=== PATIENT | male | born 1995 | race Caucasian/White ===

== ENCOUNTER 2016-09-27 03:14 | Emergency (ER) | payer OTHER ==
[~2016-09-27] VITALS: Ht 188 cm; Wt 95.2 kg
[2016-09-27 05:58] VITALS: BP 122/74
== END 2016-09-27 05:58 | disposition home or self-care (01) ==
LOC: ED 03:14
DX: S46.911A Strain of unspecified muscle, fascia and tendon at shoulder and upper arm level, right arm, initial encounter (principal); V43.52XA Car driver injured in collision with other type car in traffic accident, initial encounter; Y93.89 Activity, other specified; Y99.8 Other external cause status; Y92.89 Other specified places as the place of occurrence of the external cause
CPT/HCPCS: J1885; Q0092

== ENCOUNTER 2018-02-27 17:04 | Emergency (ER) | payer BC ==
[~2018-02-27] VITALS: Ht 188 cm; Wt 77.6 kg
[2018-02-27 17:37] VITALS: Ht 188 cm; Wt 77.6 kg
[2018-02-27 18:22] LABS: BASOPHIL % 0.9 % (0-2); PLATELET COUNT 287 x10^3mcL (130-400); RED CELL DISTRIBUTION WIDTH 12.3 % (11.5-14.5)
[2018-02-27 18:33] LABS: CALCIUM 9.3 mg/dL (8.5-10.1); CARBON DIOXIDE 31.6 mmol/L (21-32); CHLORIDE SERUM 101 mmol/L (98-107); CREATININE SERUM 0.8 mg/dL (0.7-1.3); GFR1 > 60 mL/min; GLUCOSE SERUM 109 mg/dL (74-106); POTASSIUM SERUM 3.5 mmol/L (3.5-5.1); SODIUM SERUM 140 mmol/L (136-145)
[2018-02-27 18:37] LABS: ALBUMIN 4.3 g/dL (3.4-5.0); ALKALINE PHOSPHATASE 84 U/L (46-116); ALT/SGPT 54 U/L (16-63); AST/SGOT 42 U/L (15-37); BILIRUBIN TOTAL 0.52 mg/dL (0.20-1.00); HDL CHOLESTEROL 48 mg/dL (40-60); PHOSPHOROUS 3.2 mg/dL (2.5-4.9); TOTAL PROTEIN, SERUM 7.6 g/dL (6.4-8.2); URIC ACID 5.6 mg/dL (3.5-7.2)
[2018-02-27 18:38] LABS: CHOLESTEROL 111 mg/dL (<200)
[2018-02-27 21:57] VITALS: BP 135/87
== END 2018-02-27 21:57 | disposition home or self-care (01) ==
LOC: ED 17:04
PROVIDERS: Emergency Medicine
DX: Z11.3 Encounter for screening for infections with a predominantly sexual mode of transmission (principal); I45.6 Pre-excitation syndrome; F32.9 Major depressive disorder, single episode, unspecified
CPT/HCPCS: 36415